=== PATIENT | male | born 1990 | race Caucasian/White ===

== ENCOUNTER 2022-11-27 01:14 | Emergency (ER) | payer BC, OTHER ==
[~2022-11-27] VITALS: Ht 175 cm; Wt 153.3 kg
[2022-11-27] MEDS ORDERED: BECL10.6 (01:29)
[2022-11-27] MEDS ORDERED: PHEN37.58 (01:29)
[2022-11-27] MEDS ORDERED: albuterol (01:29)
--- NOTE | 2022-11-27 01:40 | ED General ---
General Chief Complaint: Exposure Stated Complaint: CP,CHEST TIGHTNESS, BREATHING BATTERY FUMES AT WOR Nursing Triage Note: C/O RIGHT CHEST TIGHTNESS, SOA SINCE APPORX. 1929 AFTER BATTERY OVERCHARGED AT WORK SITE RELEASING GAS INTO WORK ENVIRONMENT. 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 C/O RIGHT UPPER CHEST TIGHTNESS SINCE 2229--AFTER HE TOOK A DEEP BREATH, AND AFTER HE STARTED GOOGLING AND READING ABOUT SULFURIC ACID FUMES NO COUGH NO DIFFICULTY BREATHING OR WHEEZING. NO WATERING / BURNING OF EYES OR VISION CHANGES. NO HEADACHE NO NAUSEA/VOMITING NO SKIN RASH OR IRRITATION. PT HAS HISTORY OF ASTHMA, BUT HAS NOT NEEDED HIS INHALER, AND DOES NOT HAVE HIS INHALERS WITH HIM, AND HE HAS NO RESPIRATORY SYMPTOMS Allergies and Home Medications Allergies Coded Allergies: No Known Drug Allergies (Unverified , 06/01/15) Patient Home Medication List Home Medication List Reviewed: Yes Beclomethasone Dipropionate (Qvar Redihaler) 40 Mcg/Actuation Hfa.aeroba, (Reported) Entered as Reported by: ISAIAH BERNARD on 11/27/22128 Last Action: New Order Phentermine HCl (Phentermine HCl) 37.5 Mg Tablet, (Reported) Entered as Reported by: ISAIAH BERNARD on 11/27/22128 Last Action: New Order [albuterol] , (Reported) Entered as Reported by: ISAIAH BERNARD on 11/27/22128 Last Action: New Order Review of Systems Review of Systems Constitutional: no symptoms reported EENTM: no symptoms reported Respiratory: no symptoms reported Cardiovascular: see HPI, chest pain Gastrointestinal: no symptoms reported Genitourinary: no symptoms reported Musculoskeletal: no symptoms reported Skin: no symptoms reported Psychiatric/Neurological: No Symptoms Reported Hematologic/Lymphatic: No Symptoms Reported Immunological/Allergic: no symptoms reported Past Tbgvbfm-[id number]-Bqcwwj Hx Patient Social History Tobacco Use?: No Substance use?: No Alcohol Use?: Yes Alcohol Frequency: Once in a while Pt feels they are or have been: No Immunizations Up To Date First/Initial COVID19 Vaccinat: Na Past Medical History Surgery/Hospitalization HX: LEFT LEG FX, ASTHMA Surgeries: Yes Orthopedic Respiratory: Yes Asthma Cardiac: No Neurological: No Reproductive Disorders: No Sexually Transmitted Disease: No Genitourinary: No Gastrointestinal: No Musculoskeletal: No Endocrine: Yes (OBESITY) HEENT: No Cancer: No Psychosocial: No Integumentary: No Blood Disorders: No Family Medical History Hypertension Physical Exam Vital Signs Vital Signs - First Documented Capillary Refill : Less Than 3 Seconds Height, Weight, BMI Height: 5'9" Weight: 300lbs. oz. [id number]; 50.00 BMI Method:Stated General Appearance: No Apparent Distress, WD/WN, Obese, Other (DOES NOT APPEAR ILL OR TO BE IN ANY DISCOMFORT OR DISTRESS. NO COUGH OR DYSPNEA NOTED. 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 Norm as Tested Skin: Normal Color, Warm/Dry Progress/Results/Core Measures Suspected Sepsis SIRS Temperature: Pulse: 88 Respiratory Rate: 14 Blood Pressure 144 /104 Mean: 117 Results/Orders My Orders Orders - MATTHEW CARDONA DO Monitor-Rhythm Ecg Trace Only (11/27/22 01:33) Chest 1 View, Ap/Pa Only (11/27/22 01:33) Vital Signs/I&O 11/27/22 11/27/22 11/27/22 01:23 01:23 02:02 Temp 36.0 Pulse 88 96 Resp 14 16 B/P (MAP) 144/104 (117) 144/109 Pulse Ox 97 98 O2 Delivery Room Air Room Air Room Air Capillary Refill : Less Than 3 Seconds Blood Pressure Mean: 117 Progress Note : Progress Note POISON CONTROL CALLED PRIOR TO PATIENT'S ARRIVAL. SUPPORTIVE TREATMENT IF PT DEVELOPS RESPIRATORY SYMPTOMS. O2 SATS 98% ON ROOM AIR NO COUGH NO DYSPNEA NO HYPOXIA NO RESPIRATORY SYMPTOMS OF ANY KIND NO SIGNS OF ANY TOXICITY BP IS ELEVATED, ADVISED OF NEED FOR FOLLOW UP FOR FURTHER EVALUATION OF THIS PROBLEM. UNEVENTFUL ER STAY REVIEWED CXR RESULTS, PENDING RADIOLOGIST REVIEW, AND ANTICIPATED COURSE, NEED FOR FOLLOW UP AND RETURN PRECAUTIONS BASED ON HIS SYMPTOMS, IT IS UNLIKELY THAT HE HAD A TOXIC EXPOSURE, HE HAS NOT HAD ANY RESPIRATORY SYMPTOMS, OR ANY OTHER SYMPTOMS OF TOXICITY. Diagnostic Imaging Comments CXR--NO ACUTE PROCESS, PENDING RADIOLOGIST REVIEW Reviewed: Reviewed by Me Departure Impression Primary Impression: EXPOSURE TO CHEMICAL FUMES Disposition: HOME, SELF-CARE Condition: Stable Departure-Patient Inst. Decision time for Depature: 01:55 Referrals: NO,LOCAL PHYSICIAN (PCP/Family) Primary Care Physician Patient Instructions: Smoke Inhalation (DC) Add. Discharge Instructions: HOME, REST TYLENOL AND MOTRIN NEEDED FOR PAIN LOTS OF CLEAR LIQUIDS RETURN TO ER IF YOU DEVELOP ANY RESPIRATORY SYMPTOMS--SHORTNESS OF BREATH, WHEEZING, COUGHING, ETC. All discharge instructions reviewed with patient and/or family. Voiced understanding. MATTHEW CARDONA DO Nov 27, 2022 01:40
[2022-11-27 02:02] VITALS: BP 144/109
--- NOTE | 2022-11-27 03:23 | Diagnostic Imaging Report ---
Indication: Chest pain, shortness of breath Portable chest 1:37 AM Heart size and pulmonary vascularity are normal. Lungs are clear. There are no effusions or pneumothoraces. IMPRESSION: No acute abnormalities in the chest Dictated by: Dictated on workstation # [id number]
== END 2022-11-27 02:04 | disposition home or self-care (01) ==
LOC: EDUNIT# 01:14 → ER 01:20
DX: R07.89 Other chest pain (principal); E66.9 Obesity, unspecified; Z68.43 Body mass index [BMI] 50.0-59.9, adult; Z77.098 Contact with and (suspected) exposure to other hazardous, chiefly nonmedicinal, chemicals
CPT/HCPCS: 71045; 93041